=== PATIENT | male | born 1960 | race Two or more races ===

== ENCOUNTER 2017-03-25 15:10 | Outpatient (CLI) | payer OTHER | END 2017-03-25 15:16 | disposition home or self-care (01) | LOC: RAD 501 15:10 | DX: I10 Essential (primary) hypertension (principal); M54.5 Low back pain; Z01.810 Encounter for preprocedural cardiovascular examination; E03.8 Other specified hypothyroidism; E55.9 Vitamin D deficiency, unspecified; E11.42 Type 2 diabetes mellitus with diabetic polyneuropathy ==

== ENCOUNTER 2017-11-23 03:28 | Emergency (ER) | payer OTHER ==
[~2017-11-23] VITALS: Ht 172.7 cm; Wt 74.8 kg
[2017-11-23] MEDS ORDERED: GILTUSS TR TAB1 EACH PO (05:29)
== END 2017-11-23 05:30 | disposition home or self-care (01) ==
LOC: ER 03:28
DX: J06.9 Acute upper respiratory infection, unspecified (principal)